=== PATIENT | female | born 1970 | race Caucasian/White ===

== ENCOUNTER 2016-07-05 07:17 | Inpatient (IN) | payer MEDICAID, OTHER ==
--- NOTE | 2016-07-05 07:35 | ED Physician Chart ---
Chief Complaint/HPI - Patient Information Date Seen:: 07/05/16 Time Seen:: 07:30 Chief Complaint:: ABDOMINAL PAIN History of Present Illness:: THIS IS A 45 YO FEMALE WITH THE ONSET OF ABDOMINAL PAIN YESTERDAY ABOUT 1600 HRS AND THE PAIN HAS PERSIST. SHE STATES THAT SHE HAS NAUSEA AND VOMITING SINCE YESTERDAY. SHE ADMITS TO DIARRHEA BUT NOT CONSTIPATION. SHE DENIES DIABETES AND HYPERTENSION. SHE ADMITS TO A BUT NO OTHER SURGERIES. SHE DENIES FEVER AND DENIES PAINFUL URINATION. Allergies:: Allergies Allergy/AdvReac Type Severity Reaction Status Date / Time No Known Allergies Allergy Verified 07/05/16 07:26 Vitals:: Vital Signs - 8 hr 07/05/16 07:26 Temp 98.5 F HR 82 RR 15 BP 113/68 O2 Sat % 100 Historian:: Patient Review:: Nurse's Note Reviewed Review of Systems - Review of Systems General/Constitutional: No fever, No chills, No weight loss, No weakness, No diaphoresis, No edema, No loss of appetite Skin: No skin lesions, No rash, No bruising Head: No headache, No light-headedness Eyes: No loss of vision, No pain, No diplopia ENT: No earache, No nasal drainage, No sore throat, No tinnitus Neck: No neck pain, No swelling, No thyromegaly, No stiffness, No mass noted Cardio Vascular: No chest pain, No palpitations, No PND, No orthopnea, No edema Pulmonary: No SOB, No cough, No sputum, No wheezing GI: Nausea, Vomiting, Diarrhea, Pain, No melena, No hematochezia, No constipation, No hematemesis G/U: No dysuria, No frequency, No hematuria Musculoskeletal: No bone or joint pain, No back pain, No muscle pain Endocrine: No polyuria, No polydipsia Psychiatric: No prior psych history, No depression, No anxiety, No suicidal ideation Hematopoietic: No bruising, No lymphadenopathy Allergic/Immuno: No urticaria, No angioedema Neurological: No syncope, No focal symptoms, No weakness, No paresthesia, No headache, No seizure, No dizziness, No confusion, No vertigo Past Medical History - Past Medical History Obtainable: Yes Past Medical History: No significant medical hx Family History: None Social History: Non Smoker, No Alcohol, No Drug Use, Employed Surgical History: Psychiatricy History: None Medication: Reviewed Family Medical History - Family Member Mother History Unknown: Yes Physical Exam - Physical Examination General/Constitutional: Awake, Well-developed, well-nourished, Alert, No distress, GCS 15, Non-toxic appearing, Ambulatory Head: Atraumatic Eyes: Lids, conjuctiva normal, PERRL, EOMI Skin: Nl inspection, No rash, No skin lesions, No ecchymosis, Well hydrated, No lymphadenopathy ENMT: External ears, nose nl, Nasal exam nl, Lips, teeth, gums nl Neck: Nontender, Full ROM w/o pain, No JVD, No nuchal rigidity, No bruit, No mass, No stridor Respiratory: Nl effort/Exclusion, Clear to Auscultation, No Wheeze/Rhonchi/Rales Cardio Vascular: RRR, No murmur, gallop, rubs, NL S1 S2 GI: No organomegaly, No hernia, Normal BS's, Nondistended, No mass/bruits, No McBurney tenderness Other GI comments:: TENDERNESS IN THE LOWER ABDOMEN WITH REBOUND. : No CVA tenderness Extremities: No tenderness or effusion, Full ROM, normal strength in all extremities, No edema, Normal digits & nails Neuro/Psych: Alert/oriented, DTR's symmetric, Normal sensory exam, Normal motor strength, Judgement/insight normal, Mood normal, Normal gait, No focal deficits Misc: normal gait, Normal back, No paraspinal tenderness Assessment - Assessment General Assessment: THE LABS WILL BE EVALUATED WITH THE PATIENT BY DR. LOVING WHO WILL TAKE OVER AT 0800 HRS. ED Septic Shock - . Is Septic Shock (SBP<90, OR Lactate>4 mmol\L) present?: No - <6hrs of presentation: Vital Signs: Vital Signs - 8 hr 07/05/16 07:26 Temp 98.5 F HR 82 RR 15 BP 113/68 O2 Sat % 100
[2016-07-05] MEDS ORDERED: Sodium Chloride 0.9% 1,000 ML IV ONE (07:46)
[2016-07-05 07:56] LABS: HEMATOCRIT 41.2 % (35.0-45.0); MEAN CORPUSCULAR HEMOGLOBIN 29.5 pg (27.0-31.0); MEAN CORPUSCULAR HGB CONC 33.9 pg (28.0-36.0); MEAN PLATELET VOLUME 8.4 fl; PLATELET COUNT 220 Th/cmm (150-400); RED BLOOD COUNT 4.74 Mil/cmm (3.80-5.10); RED CELL DISTRIBUTION WIDTH 12.1 % (11.5-20.0)
[2016-07-05 08:01] LABS: WHITE BLOOD COUNT 14.4 Th/cmm (4.8-10.8)
[2016-07-05 08:11] LABS: ALB/GLOB RATIO 1.5 (1.0-1.8); ALKALINE PHOSPHATASE 49 U/L (34-104); ANION GAP 8.4 (7.0-16.0); BUN - UREA NITROGEN 6 mg/dL (7-25); CALCIUM SERUM 9.1 mg/dL (8.6-10.3); CARBON DIOXIDE 29.1 mEq/L (21.0-31.0); CHLORIDE 100 mEq/L (98-107); CREATININE - SERUM 0.6 mg/dL (0.6-1.2); GLUCOSE 135 mg/dL (70-105); POTASSIUM SERUM 3.5 mEq/L (3.5-5.1); SGOT 13 U/L (13-39); SGPT/ALT 9 U/L (7-52); SODIUM SERUM 134 mEq/L (136-145)
[2016-07-05 08:12] LABS: CHOLESTEROL 204 mg/dL (<200); TRIGLYCERIDES 76 mg/dL (<150)
[2016-07-05 08:28] LABS: BAND NEUTROPHILE 1 % (0-10); NEUTROPHILS 86 % (40-80); TOTAL CELLS COUNTED 100
[2016-07-05 08:29] LABS: PLATELET ESTIMATE ADEQUATE (NORMAL)
[2016-07-05 09:38] LABS: URINE BILIRUBIN NEGATIVE (NEGATIVE); URINE BLOOD SMALL (NEGATIVE); URINE COLOR YELLOW; URINE GLUCOSE (UA) NEGATIVE (NEGATIVE); URINE KETONE NEGATIVE (NEGATIVE)
[2016-07-05 09:39] LABS: URINE BACTERIA NONE SEEN /hpf (NONE SEEN); URINE EPITHELIAL CELLS FEW /lpf (FEW); URINE PROTEIN NEGATIVE (NEGATIVE); URINE UROBILINOGEN 0.2 E.U./dL (0.2 - 1.0); URINE WBC 0-2 /hpf (0-5)
--- NOTE | 2016-07-05 09:54 | Diagnostic Imaging Report ---
CT scan abdomen and pelvis without intravenous contrast HISTORY: Pain Total DLP equals 467 CTDI equals 9.5 Axial sections were obtained from the xiphoid process down to the pubic symphysis. The liver exhibits a homogeneous parenchyma. No focal lesions. The spleen appears normal. No abnormalities are seen in the region of the pancreas. No focal renal lesions. The exam of the pelvis demonstrates an enlarged uterus. No other discrete abnormal masses or abnormal fluid collections. Small calcifications noted in the lower pelvis probably vascular. IMPRESSION: 1. No definite acute abnormalities 2. Generalized uterine enlargement
[2016-07-05] MEDS ORDERED: Hydrocodone/APAP 10 mg/325 mg Tab PO PRN (11:43)
[2016-07-05] MEDS ORDERED: Morphine Sulfate 2 mg/mL 1mL Syr IV PRN (11:43)
[2016-07-05] MEDS ORDERED: D5-0.45NS 1,000 ML IV SCH (11:43)
--- NOTE | 2016-07-05 13:21 | General Progress Note ---
Subjective - Review of Systems Service Date: 07/05/16 Events since last encounter: abdominal pain for 2 days, N and vomiting no diarrhea menstruations ok CT abdomen negative PE tender RLQ and pelvis labs neg Plan: US for GB stones, pelvic patholgoy Objective - Results Result Diagrams: 07/05/16 07:45 07/05/16 07:45 Recent Labs: Laboratory Last Values WBC 14.4 Th/cmm (4.8-10.8) H 07/05/16 07:45 RBC 4.74 Mil/cmm (3.80-5.10) 07/05/16 07:45 Hgb 14.0 gm/dL (11.7-15.5) 07/05/16 07:45 Hct 41.2 % (35.0-45.0) 07/05/16 07:45 MCV 87.0 fl (81-100) 07/05/16 07:45 MCH 29.5 pg (27.0-31.0) 07/05/16 07:45 MCHC Differential 33.9 pg (28.0-36.0) 07/05/16 07:45 RDW 12.1 % (11.5-20.0) 07/05/16 07:45 Plt Count 220 Th/cmm (150-400) 07/05/16 07:45 MPV 8.4 fl 07/05/16 07:45 Band Neutrophils % 1 % (0-10) 07/05/16 07:45 Neutrophils (Manual) 86 % (40-80) H 07/05/16 07:45 Lymphocytes 10 % (20-50) L 07/05/16 07:45 Monocytes 3 % (2-10) 07/05/16 07:45 Platelet Estimate ADEQUATE (NORMAL) 07/05/16 07:45 Sodium 134 mEq/L (136-145) L 07/05/16 07:45 Potassium 3.5 mEq/L (3.5-5.1) 07/05/16 07:45 Chloride 100 mEq/L (98-107) 07/05/16 07:45 Carbon Dioxide 29.1 mEq/L (21.0-31.0) 07/05/16 07:45 Anion Gap 8.4 (7.0-16.0) 07/05/16 07:45 BUN 6 mg/dL (7-25) L 07/05/16 07:45 Creatinine 0.6 mg/dL (0.6-1.2) 07/05/16 07:45 Est GFR ( Amer) > 60.0 ml/min (>90) 07/05/16 07:45 Est GFR (Non-Af Amer) > 60.0 ml/min 07/05/16 07:45 BUN/Creatinine Ratio 10.0 07/05/16 07:45 Glucose 135 mg/dL (70-105) H 07/05/16 07:45 Whole Bld Lactic Acid 1.20 mmol/L (0.60-1.99) 07/05/16 08:10 Calcium 9.1 mg/dL (8.6-10.3) 07/05/16 07:45 Total Bilirubin 1.0 mg/dL (0.3-1.0) 07/05/16 07:45 AST 13 U/L (13-39) 07/05/16 07:45 ALT 9 U/L (7-52) 07/05/16 07:45 Alkaline Phosphatase 49 U/L (34-104) 07/05/16 07:45 Troponin I < 0.01 ng/mL (0.01-0.05) L 07/05/16 07:45 Total Protein 7.1 gm/dL (6.0-8.3) 07/05/16 07:45 Albumin 4.2 gm/dL (3.7-5.3) 07/05/16 07:45 Globulin 2.9 gm/dL 07/05/16 07:45 Albumin/Globulin Ratio 1.5 (1.0-1.8) 07/05/16 07:45 Triglycerides 76 mg/dL (<150) 07/05/16 07:45 Cholesterol 204 mg/dL (<200) H 07/05/16 07:45 LDL Cholesterol Direct 124 mg/dL (75-193) 07/05/16 07:45 HDL Cholesterol 65 mg/dL (23-92) 07/05/16 07:45 TSH 1.92 uIU/ml (0.34-5.60) 07/05/16 07:45 Serum , Qual NEGATIVE (NEGATIVE) 07/05/16 07:45 Urine Source CLEAN C 07/05/16 09:00 Urine Color YELLOW 07/05/16 09:00 Urine Clarity CLEAR (CLEAR) 07/05/16 09:00 Urine pH 7.0 07/05/16 09:00 Ur Specific [place] 1.010 (1.005-1.030) 07/05/16 09:00 Urine Protein NEGATIVE mg/dL (NEGATIVE) 07/05/16 09:00 Urine Glucose (UA) NEGATIVE mg/dL (NEGATIVE) 07/05/16 09:00 Urine Ketones NEGATIVE mg/dL (NEGATIVE) 07/05/16 09:00 Urine Blood SMALL (NEGATIVE) H 07/05/16 09:00 Urine Nitrate NEGATIVE (NEGATIVE) 07/05/16 09:00 Urine Bilirubin NEGATIVE (NEGATIVE) 07/05/16 09:00 Urine Urobilinogen 0.2 E.U./dL (0.2 - 1.0) 07/05/16 09:00 Ur Leukocyte Esterase NEGATIVE (NEGATIVE) 07/05/16 09:00 Urine RBC 2-5 /hpf (0-5) 07/05/16 09:00 Urine WBC 0-2 /hpf (0-5) 07/05/16 09:00 Ur Epithelial Cells FEW /lpf (FEW) 07/05/16 09:00 Urine Bacteria NONE SEEN /hpf (NONE SEEN) 07/05/16 09:00 - Physical Exam Vitals and I&O: Vital Signs Temp 98.1 F 07/05/16 12:29 Pulse 69 07/05/16 12:29 Resp 18 07/05/16 12:29 BP 106/53 07/05/16 12:29 Pulse Ox 98 07/05/16 12:29 Intake & Output 07/04/16 07/05/16 07/05/16 18:59 06:59 18:59 Other: Stool Characteristics Soft Active Medications: Current Medications Acetaminophen/Hydrocodone Bitart ([place] 10 Mg/325 Mg) 1 tab PO Q4H PRN PRN Reason: moderate pain Stop: 09/03/16 11:42 Dextrose/Sodium Chloride (D5-0.45ns) 1,000 mls @ 80 mls/hr IV .[id number] MINOO Stop: 09/03/16 11:42 Last Admin: 07/05/16 12:01 Dose: 80 mls/hr Morphine Sulfate (Morphine) 2 mg IV Q6H PRN PRN Reason: Severe Pain Stop: 09/03/16 11:42 Pneumococcal Polyvalent Vaccine (Pneumovax) 0.5 ml IM .ONCE ONE Stop: 07/06/16 17:01 - Procedures Procedures: Procedures Procedure Code Date BILAT TUBAL DESTRUCT NEC 66.39 03/11/03 DELIVERY ONLY 67544 03/11/03 DX PROC FETUS/AMNION NEC 75.35 02/24/03 DX ULTRASOUND-GRAV UTER 88.78 01/10/03 NON-STRESS TEST 87583 02/24/03 LOW CERVICAL 74.1 03/11/03 OB US LIMITED FETUS(S) 60103 01/10/03 Assessment/Plan - Problem List Patient Problems: All Active Problems RIGHT LOWER QUADRANT PAIN WITH N/V/D (Acute)
--- NOTE | 2016-07-05 15:38 | Diagnostic Imaging Report ---
Gallbladder ultrasound (Limited) HISTORY: Pain The exam demonstrates a mildly dilated gallbladder. No intraluminal abnormalities. Specifically, no calculi identified. Normal gallbladder wall thickness. The common bile duct measures 4 mm in diameter. The remainder of the intra-abdominal organs were not evaluated at this time. IMPRESSION: 1. Negative exam of the gallbladder
--- NOTE | 2016-07-05 16:14 | Consultation ---
DATE OF CONSULTATION: 07/05/2016 REFERRING PHYSICIAN: Jn Tomlin M.D. REASON FOR CONSULTATION: Abdominal pain. Thank you for referring this patient to me. HISTORY OF PRESENT ILLNESS: This is a 45-year-old female with abdominal pain started yesterday and has persisted. She claims she had nausea and vomiting since yesterday. She claims she had some diarrhea, but has had regular bowel movements, no constipation. PAST MEDICAL HISTORY: No surgeries in the past. She claims that she has had pain of this nature several months ago. LABORATORY STUDIES: Today, the WBC slightly elevated 14,400, 86% neutrophils. Chemistry is essentially normal. The patient underwent CT scan of the abdomen and there are no definite acute abnormalities noted, although there was generalized uterine enlargement. PHYSICAL EXAMINATION: GENERAL: The patient is [place] Citizen speaking, but does understand and is oriented well. ABDOMEN: Flat and soft. No scar noted. No tenderness in the right upper quadrant. She claims moderate tenderness in the right lower quadrant and hypogastric area. No rebound is noted. IMPRESSION: Abdominal pain, etiology (?). PLAN: We will order ultrasound of the pelvis and the gallbladder. We will follow with you. JOB# [id number]
--- NOTE | 2016-07-05 16:33 | History & Physical ---
ADMIT DATE: 07/05/2016 CHIEF COMPLAINT: This is a 45-year-old female who was admitted through the Emergency Room for observation under tele to the [facility] Med/Surg with the chief complaint of severe intractable abdominal pain. HISTORY OF PRESENT ILLNESS: This is a 45-year-old female with onset of abdominal pain yesterday about 1600 hours and the pain did persist and she states that she had ____ loose stools 4 times and she does not recollect eating any unusual foods except she had a cheeseburger and Gabonese fries in the prior evening. She denies hypertension or diabetes and she has no strong medical history. She is overall pretty healthy and she has 5 children and 4 of them were normal vaginal delivery and the last one was a . Otherwise, there are no other surgical history noted and she denies any fever or painful urination. ALLERGIES: She is not allergic to any known medications. PHYSICAL EXAMINATION: VITAL SIGNS: On admission, temperature 98.5, heart rate 82, respirations 15 and blood pressure 113/68 and saturating 100% on room air. GENERAL: She has no fevers, no chills. No history of weight loss. SKIN: Has no lesions, no rash. HEENT: She has no headache, no lightheadedness and no loss of vision. No diplopia. No earache. No nasal drainage. NECK: Normal, full range of motion. No neck pain or swelling. CARDIOVASCULAR: She has no chest pain. PULMONARY: No shortness of breath, no cough and no wheezing. GASTROINTESTINAL: The patient has a history of nausea, vomiting and diarrhea and also abdominal pain, but there is no melena, no hematochezia, no constipation, no hematemesis. GENITOURINARY: No dysuria, no frequency, no hematuria. MUSCULOSKELETAL: No bone or joint pain and no back pain. No muscle pain. ENDOCRINE: There is no polyuria, no polydipsia. PSYCHIATRIC: There is no history of previous psych history of depression. ALLERGIC AND IMMUNOLOGICAL HISTORY: Negative for urticaria, no angioedema. NEUROLOGICAL: The patient has no syncope. NEUROLOGIC: No focal symptoms, no weakness and no paresthesias. PAST MEDICAL HISTORY: None significant. SOCIAL HISTORY: She is a nonsmoker, nonalcoholic, and no use of any drugs. SURGICAL HISTORY: She had 1 for the childbirth. PSYCHIATRIC HISTORY: Negative. MEDICATIONS: None, but see the reconciliation list. FAMILY MEDICAL HISTORY: There is noncontributory history. PHYSICAL EXAMINATION: GENERAL: She is a well-groomed, well-developed, well-nourished female. She is awake and arousable, but she is in very mild pain by the time I examined in the afternoon. She is not in any distress and she is alert and nontoxic appearing. HEENT: Head is atraumatic. Eyes, conjunctivae are normal. Pupils are equally reactive to light and skin is normal for inspection, no rash and no lesions, no ecchymosis. Ears, nose, mouth, and throat are normal for the exam. NECK: Nontender, full range of motion without any pain. No JVD and no nuchal rigidity. RESPIRATORY: The patient has normal excursion. CHEST: Lungs are clear to auscultate. CARDIOVASCULAR: Regular rate and rhythm. No murmur, no gallops and normal S1, S2 heard. GASTROINTESTINAL: No organomegaly, no hernia. Normal bowel sounds. Abdomen is nondistended and no masses palpable. There is no McBurney tenderness, but there is diffuse tenderness in the lower right quadrant of the abdomen, more towards on the inguinal area, but the pain is very diffuse in that area and it is only around 4/10 and tenderness of the lower abdomen without any rebound at this point. In the Emergency Room, it had a rebound. EXTREMITIES: There is no clubbing, no cyanosis and no edema. NEUROLOGIC: The patient has a nonfocal exam. MISCELLANEOUS: She has a normal gait, normal back and no paraspinal tenderness noted. LABORATORY DATA: Labs are evaluated and labs show a WBC of 14.4 and hemoglobin of 14 and hematocrit 41.2, platelets 220. Chemistry shows sodium of 134, potassium 3.5, chloride 100, carbon dioxide 29.1, BUN 6 and creatinine 0.6, glucose is 135. Troponin is less than 0.01. Cholesterol is 204 and TSH is 1.92 and serum test is negative. Urine is basically normal and CT of the abdomen and pelvis, which was done in the Emergency Room shows no definite acute abnormalities and generalized uterine enlargement. ASSESSMENT: At this time: 1. Abdominal pain. 2. Gastroenteritis. 3. Rule out appendicitis. 4. Leukocytosis. PLAN: To admit her to the [facility] for observation and kept her n.p.o. and Dr. Humphrey was consulted and Dr. Humphrey recommended to do an ultrasound of the abdomen. Once ultrasound of the abdomen is done, we will try to feed the patient and if the patient is tolerating the food okay and ultrasound results are negative, then the patient will be discharged home after 24 hours of observation. JOB# [id number]
--- NOTE | 2016-07-05 22:40 | Admit Criteria Form ---
Admit Criteria Forms - Admit Criteria Diagnosis: ABDOMINAL PAIN Clinical Indications for Admission to Inpatient Care (Place 'X' for any and all applicable criteria): Admission is indicated for ANY ONE of the following(1)(2)(3)(4)(5): [X]I. Inpatient admission required rather than observation care (Also use Abdominal Pain: Observation Care, as appropriate) because of ANY ONE of the following: [ ]a) Severe pain requiring acute inpatient management [X]b) Identification of etiology/finding that requires inpatient care (eg, aortic dissection, free air) [ ]c) Absent bowel sounds with complete ileus(6) [ ]d) Suspected toxic megacolon [ ]e) Severe electrolyte abnormalities requiring inpatient care [ ]f) High fever or infection requiring inpatient admission as indicated by ANY ONE of following(7)(8): [ ] i) Appropriate outpatient or observational care antimicrobial treatment unavailable, not effective, or not feasible [ ] ii) Documented bacteremia [ ] iii) Temperature > 104.9 degrees F (oral) [ ] iv) T >103.1 F (oral) or < 96.8 F(rectal) that does not respond to all emergency treatment measures [ ]g) Signs of intestinal obstruction [B] [ ]h) Hemodynamic instability [ ]i) IV fluid to replace significant ongoing losses (greater than 3 L/m2 per day) (12)(13) [ ]j) Percutaneous or open drainage (eg, abscess, biliary tract ) procedures [ ]k) Parenteral nutrition regimen that must be implemented on inpatient basis [ ]l) Other condition,treatment or monitoring requiring inpatient admission. [ ]II. Peritoneal signs present [ ]III. Surgery needed that cannot be performed on an ambulatory basis. [ ]IV. Evaluation requires patient to not eat or drink for extended period ( eg, more than 24 hours). [ ]V. Contraindications and/or Inappropriate clinical situations for Observational Care in patients with abdominal pain, when ANY ONE of the following is required: [ ]a) Thorough evaluation is required to prevent catastrophic events due to delays in diagnosing (e.g.Mesenteric ischemia) 1,3 [ ]b) Patient with severe pathology or with chronic symptoms unlikely to improve in the ED stay (3) [ ]. General contraindications and/or Inappropriate clinical situations for Observational Care in patients with abdominal pain, when ANY ONE of the following is required: [ ]a) Prediction of prolongation of LOS based on ANY ONE of the following may be considered as a contraindication for observational care 2, 3, 4, 5, 6, 7, 8, 9, 10, 11 [ ]i) Age > 65 yrs. [ ]ii) Patient arriving by ambulance [ ]iii) Patient with high acuity [ ]iv) Patient requiring vital sign monitoring [ ]v) Patient on IV medication [ ]b) Systolic blood pressures 180mmHg 3,12 [ ]c) Patient with altered mental status including delirium and other alteration of consciousness, (3) [ ]d) Patient whose discharge disposition will be to a detention home or rehabilitation home should not be managed in Emergency Department Observation Unit. CMS rule requires 3 days hospital stay before such placement.3,13 [ ]e) Patient with failure to thrive due to broad array of etiologies 3,16,17 [ ]f) Inability to ambulate 3,14 Extended stay beyond goal length of stay may be needed for(2)(3): [ ]a) Persistent abdominal pain with suspected intra-abdominal process [ ]b) Diagnosed condition requiring continued stay (e.g., pancreatitis, complicated diverticulitis) [ ]c) Surgery (e.g., colectomy) The original [facility] content created by [employer] has been revised. The portions of the content which have been revised are identified through the use of italic text or in bold, and [facility] has neither reviewed nor approved the modified material.All other unmodified content is copyright [facility]. Please see references footnoted in the original [facility] edition 2016 Admit Criteria Met?: Yes
[2016-07-06] MEDS ORDERED: Pneumococcal Vaccine 0.5 mL Vial IM ONE (17:00)
== END 2016-07-05 18:50 | disposition home or self-care (01) | DRG 392 ==
LOC: ER 07:17 → TELE 10:38
PROVIDERS: ADMIT General Practice; ATTEND General Practice
DX: K52.9 Noninfective gastroenteritis and colitis, unspecified (principal); D72.829 Elevated white blood cell count, unspecified; R10.9 Unspecified abdominal pain; K37 Unspecified appendicitis; R11.2 Nausea with vomiting, unspecified
CPT/HCPCS: 36415-UA; 76705-TC; 80053-TC; 80061-TC; 81001-TC; 81025-TC; 83605; 84443-TC; 84484-TC; 85007-TC; 85027-TC; 96374; J0696; J7030